=== PATIENT | female | born 1995 | race African-American/Black ===

== ENCOUNTER 2020-10-12 00:34 | Emergency (ER) | payer SELFPAY ==
[2020-10-12] MEDS ORDERED: Ondansetron PF 4 MG/2 ML Vial ONE (01:02)
[2020-10-12 01:24] LABS: BHCG - Serum Negative (NEGATIVE); Pregs Control Bar Appear? YES (CONTROL BAR)
[2020-10-12 01:25] LABS: Pregs Control Background? CLEAR/WHITE (CLR/WHITE)
[2020-10-12 01:30] LABS: ALT (SGPT) 18 U/L (8-55); AST (SGOT) 20 U/L (5-34); Alkaline Phosphatase 115 U/L (40-110); Anion Gap 14 mmol/L (10-20); BUN (Urea Nitrogen) 9 mg/dL (7.0-18.7); Bilirubin, Total 1.1 mg/dL (0.2-1.2); Calc. Creatinine Clearance 0 mL/min (70-130); Calcium 9.6 mg/dL (7.8-10.44); Carbon Dioxide 25 mmol/L (22-29); Chloride 104 mmol/L (98-107); Globulin 3.9 g/dL (2.4-3.5); Glucose 106 mg/dL (70-105); Lipase 28 U/L (8-78); Potassium 3.6 mmol/L (3.5-5.1); Protein, Total 8.9 g/dL (6.0-8.3); Sodium 139 mmol/L (136-145)
[2020-10-12 01:45] LABS: #Eosinphils 0.1 10x3/uL (0.0-0.5); #Monocytes 0.5 10x3/uL (0.0-1.1); #Neutrophils 8.5 10x3/uL (1.5-8.4); %Basophils 0.2 % (0.0-2.0); %Eosinophils 0.9 % (0.0-6.0); %Lymphocytes 5.1 % (18.0-47.0); %Monocytes 5.4 % (0.0-10.0); %Neutrophils 88.2 % (40.0-75.0); Mean Corpuscular Hemoglobin 23.6 pg (27.0-33.0); Mean Corpuscular Volume 78.7 fl (81.6-98.3); Mean Platelet Volume 11.2 fl (7.4-10.4); Platelet Count 285 10x3/uL (150-450); RBC Distribution Width 17.8 % (11.5-14.5); Red Blood Cell (RBC) Count 3.81 10x6/uL (3.90-5.03); White Blood Cell (WBC) Count 9.6 10x3/uL (3.5-10.5)
== END 2020-10-12 03:34 | disposition home or self-care (01) ==
LOC: CSHERS 00:34
DX: E86.0 Dehydration (principal); R11.2 Nausea with vomiting, unspecified
CPT/HCPCS: 36415; 80053; 83605; 83690; 84703; 85025; 96374; J2405

== ENCOUNTER 2020-11-09 12:55 | Emergency (ER) | payer SELFPAY ==
[2020-11-09 13:35] LABS: Pregnancy Test - Urine (BHCG) POSITIVE (Negative)
[2020-11-09 13:38] LABS: Pregu Control Background? CLEAR/WHITE (CLR/WHITE); Pregu Control Bar Appear? YES (CONTROL BAR)
[2020-11-09 14:33] LABS: Bilirubin Neg (Negative); Blood, Urine Negative (Negative); Clarity Clear (Clear); Glucose, Urine (Dipstick) Normal (Negative); Ketone, Urine Negative (Negative); Leukocyte 25 (Negative); Nitrite Negative (Negative); Protein, Urine (Dipstick) Negative (Neg-Trace); Urobilinogen Normal mg/dL (Less than 2)
[2020-11-09 14:43] LABS: Bacteria/HPF 2+ HPF (None Seen); RBC/HPF 0-3 HPF (0-3); Squamous Epithelial 0-3 HPF (0-3); WBC/HPF 0-3 HPF (0-3)
[2020-11-09] MEDS ORDERED: Ondansetron PF 4 MG/2 ML Vial ONE (15:06)
[2020-11-09] MEDS ORDERED: Ondansetron ODT 4 MG TAB ONE (15:11)
== END 2020-11-09 15:23 | disposition home or self-care (01) ==
LOC: CSHERS 12:55
DX: O21.9 Vomiting of pregnancy, unspecified (principal)
CPT/HCPCS: 81003; 81015; 81025; 87077; 87086; 87186; 99284; J2405; Q0162

== ENCOUNTER 2020-11-15 19:06 | Emergency (ER) | payer SELFPAY ==
[2020-11-15 19:43] LABS: Bilirubin Neg (Negative); Blood, Urine Negative (Negative); Clarity Clear (Clear); Glucose, Urine (Dipstick) Normal (Negative); Ketone, Urine Negative (Negative); Leukocyte 500 (Negative); Nitrite Positive (Negative); Protein, Urine (Dipstick) Negative (Neg-Trace); Urobilinogen Normal mg/dL (Less than 2); pH, Urine 6.5 (5.0-9.0)
[2020-11-15 19:54] LABS: Amphetamine Not Detected (NotDetected); Barbiturates Screen Not Detected (NotDetected); Benzodiazepine Screen Not Detected (NotDetected); Cocaine Metabolite Screen Not Detected (NotDetected); Methadone Not Detected (NotDetected); Methamphetamine Not Detected (NotDetected); Opiate Screen Not Detected (NotDetected); Oxycodone Screen Not Detected (NotDetected); Phencyclidine (PCP) Not Detected (NotDetected); THC/Cannabinoid Screen Not Detected (NotDetected); Tricyclic Screen Not Detected (NotDetected)
[2020-11-15 20:12] LABS: #Basophils 0.1 10x3/uL (0.0-0.2); #Eosinphils 0.2 10x3/uL (0.0-0.5); #Monocytes 0.7 10x3/uL (0.0-1.1); #Neutrophils 4.1 10x3/uL (1.5-8.4); %Basophils 0.8 % (0.0-2.0); %Eosinophils 2.3 % (0.0-6.0); %Lymphocytes 32.7 % (18.0-47.0); %Monocytes 9.6 % (0.0-10.0); %Neutrophils 54.2 % (40.0-75.0); Hemoglobin 9.4 g/dL (12.0-15.5); Mean Corpuscular HGB CONC 30.6 g/dL (32.0-36.0); Mean Corpuscular Hemoglobin 23.4 pg (27.0-33.0); Mean Corpuscular Volume 76.6 fl (81.6-98.3); Mean Platelet Volume 10.6 fl (7.4-10.4); Platelet Count 343 10x3/uL (150-450); RBC Distribution Width 18.4 % (11.5-14.5); Red Blood Cell (RBC) Count 4.01 10x6/uL (3.90-5.03); White Blood Cell (WBC) Count 7.5 10x3/uL (3.5-10.5)
[2020-11-15 20:27] LABS: RBC/HPF 0-3 HPF (0-3)
[2020-11-15 20:29] LABS: Acetaminophen Less than 6.0 mcg/mL (10.0-30.0); Alcohol 90 mg/dL (Less than 10); Salicylate Less than 8.0 mg/dL (15.0-30.0)
[2020-11-15 20:30] LABS: ALT (SGPT) 28 U/L (8-55); AST (SGOT) 19 U/L (5-34); Albumin 4.6 g/dL (3.5-5.0); Alkaline Phosphatase 109 U/L (40-110); Anion Gap 17 mmol/L (10-20); BUN (Urea Nitrogen) 8 mg/dL (7.0-18.7); Bilirubin, Total 0.7 mg/dL (0.2-1.2); Calc. Creatinine Clearance 0 mL/min (70-130); Calcium 9.6 mg/dL (7.8-10.44); Carbon Dioxide 18 mmol/L (22-29); Chloride 109 mmol/L (98-107); Glucose 78 mg/dL (70-105); Potassium 3.6 mmol/L (3.5-5.1); Protein, Total 8.6 g/dL (6.0-8.3); Sodium 140 mmol/L (136-145)
[2020-11-15 20:42] LABS: WBC/HPF 0-3 HPF (0-3)
[2020-11-15 20:43] LABS: Bacteria/HPF 2+ HPF (None Seen); Trichomonas/HPF Rare HPF (None Seen)
[2020-11-15 20:45] LABS: HCG, Total Quant 6015.81 mIU/mL (See Ranges); Thyroid Stimulating Hormone 0.8998 uIU/mL (0.35-4.94)
[2020-11-15] MEDS ORDERED: Nitrofurantoin Macrocrystal 50 MG CAP ONE (21:17)
[2020-11-15] MEDS ORDERED: Nitrofurantoin Macrocrystal 50 MG CAP PO SCH (21:30)
== END 2020-11-15 22:35 | disposition home or self-care (01) ==
LOC: CSHERS 19:06
DX: F32.9 Major depressive disorder, single episode, unspecified (principal); A59.01 Trichomonal vulvovaginitis
CPT/HCPCS: 36415; 80053; 80306; 80307; 81003; 81015; 84443; 84702; 85025; 99285

== ENCOUNTER 2023-09-08 13:25 | Emergency (ER) | payer MEDICAID, SELFPAY ==
[2023-09-08 13:56] LABS: Bilirubin Neg (Negative); Blood, Urine 150 (Negative); Clarity Slightly Cloudy (Clear); Glucose, Urine (Dipstick) Normal (Negative); Ketone, Urine Negative (Negative); Leukocyte 500 (Negative); Nitrite Positive (Negative); Protein, Urine (Dipstick) 100 mg/dl (Neg-Trace); Urobilinogen Normal mg/dL (Less than 2)
[2023-09-08 14:13] LABS: Hematocrit 33.6 % (34.9-44.5); Hemoglobin 10.5 g/dL (12.0-15.5); Mean Corpuscular HGB CONC 31.3 g/dL (32.0-36.0); Mean Corpuscular Hemoglobin 25.4 pg (27.0-33.0); Mean Corpuscular Volume 81.4 fl (81.6-98.3); Platelet Count 281 10x3/uL (150-450); RBC Distribution Width 19.3 % (11.5-14.5); Red Blood Cell (RBC) Count 4.13 10x6/uL (3.90-5.03); White Blood Cell (WBC) Count 7.9 10x3/uL (3.5-10.5)
[2023-09-08 14:26] LABS: MDiff Complete? YES
[2023-09-08] MEDS ORDERED: Acetaminophen 500 MG TAB ONE (14:28)
[2023-09-08] MEDS ORDERED: Metoclopramide 10 MG/10 ML UDCUP ONE (14:28)
[2023-09-08 14:30] LABS: ALT (SGPT) 12 U/L (8-55); AST (SGOT) 18 U/L (5-34); Albumin 4.1 g/dL (3.5-5.0); Alkaline Phosphatase 69 U/L (40-110); Anion Gap 11 mmol/L (10-20); BUN (Urea Nitrogen) 9 mg/dL (7.0-18.7); Bilirubin, Total 0.7 mg/dL (0.2-1.2); Calc. Creatinine Clearance 0 mL/min (70-130); Calcium 9.4 mg/dL (7.8-10.44); Carbon Dioxide 23 mmol/L (22-29); Chloride 103 mmol/L (98-107); Estimated GFR 107; Glucose 94 mg/dL (70-105); Potassium 3.9 mmol/L (3.5-5.1); Protein, Total 8.1 g/dL (6.0-8.3); Sodium 133 mmol/L (136-145)
[2023-09-08 14:32] LABS: CAUTI Indications for Culture Pregnancy; WBC/HPF Greater than 50 HPF (0-3)
[2023-09-08 14:33] LABS: Bacteria/HPF 3+ HPF (None Seen); Renal Epithelial 0-3 HPF (None Seen)
[2023-09-08 14:34] LABS: Urine Culture Reflex Yes Yes
[2023-09-08 17:42] LABS: Eosinophils 1 % (0-10); Lymphocytes 21 % (21-51); Monocytes 10 % (0-10); Neutrophil 68 % (42-75)
[2023-09-08 17:43] LABS: Giant Platelets SLIGHT HPF (0-5); Platelet Adequacy Comment Appears Adequate; RBC Morph Comment Within Normal Limits
== END 2023-09-08 16:24 | disposition home or self-care (01) ==
LOC: CSHERS 13:25
DX: O20.0 Threatened abortion (principal); Z3A.01 Less than 8 weeks gestation of pregnancy
CPT/HCPCS: 36415; 76856; 80053; 81001; 84702; 85025; 87077; 87086; 87186

== ENCOUNTER 2025-02-21 21:23 | Emergency (ER) | payer OTHER ==
[2025-02-21] MEDS ORDERED: Acetaminophen 500 MG TAB ONE (21:37)
[2025-02-21 23:11] LABS: Glucose, Urine (Dipstick) Normal (Negative); Leukocyte Negative (Negative); Pregnancy Test - Urine (BHCG) Negative (Negative); Pregu Control Background? CLEAR/WHITE (CLR/WHITE); Pregu Control Bar Appear? YES (CONTROL BAR); Protein, Urine (Dipstick) Negative (Neg-Trace); Specific Gravity, Urine 1.015 (1.005-1.030)
[2025-02-21] MEDS ORDERED: Ketorolac Tromethamine 30 MG (1 mL) VIAL ONE (23:26)
[2025-02-21 23:27] LABS: Bacteria/HPF None Seen HPF (None Seen); CAUTI Indications for Culture Fever or rigors; RBC/HPF 0-3 HPF (0-3); WBC/HPF 0-3 HPF (0-3)
[2025-02-21 23:29] LABS: Urine Culture Reflex No No
== END 2025-02-21 23:58 | disposition home or self-care (01) ==
LOC: CSHERS 21:23
DX: B34.9 Viral infection, unspecified (principal); I10 Essential (primary) hypertension; E66.9 Obesity, unspecified; F17.200 Nicotine dependence, unspecified, uncomplicated
CPT/HCPCS: 71045; 81001; 81025; 87400; 87426; 96372; J1885